=== PATIENT | male | born 1990 | race African-American/Black ===

== ENCOUNTER 2019-03-19 14:59 | Emergency (ER) | payer OTHER ==
[~2019-03-19] VITALS: Ht 188 cm; Wt 111.4 kg
[2019-03-19 15:45] VITALS: BP 147/86
[2019-03-19] MEDS ORDERED: AMOX TR/POT CLAV 875 MG/125 MG TABLET PO ONE (16:00)
[2019-03-19] MEDS ORDERED: HYDROCODONE/ACETAMINOPHEN 5-325 MG TABLET PO ONE (16:00)
== END 2019-03-19 16:57 | disposition home or self-care (01) ==
LOC: EMS 15:02
DX: S02.5XXA Fracture of tooth (traumatic), initial encounter for closed fracture (principal); F17.210 Nicotine dependence, cigarettes, uncomplicated; X58.XXXA Exposure to other specified factors, initial encounter; Y93.89 Activity, other specified; Y92.89 Other specified places as the place of occurrence of the external cause; Y99.8 Other external cause status
CPT/HCPCS: 99406

== ENCOUNTER 2024-04-21 01:33 | Emergency (ER) | payer OTHER ==
[~2024-04-21] VITALS: Ht 190.5 cm; Wt 100.0 kg
[2024-04-21 01:39] VITALS: BP 132/77; PULSE 88; RESP 18; O2SAT 100
[2024-04-21] MEDS: SODIUM CHLORIDE 0.9% 1,000 ML IV ONE (02:25)
== END 2024-04-21 03:12 | disposition left against medical advice (07) ==
LOC: EMS 01:33
DX: F12.90 Cannabis use, unspecified, uncomplicated (principal); T50.995A Adverse effect of other drugs, medicaments and biological substances, initial encounter; Y92.89 Other specified places as the place of occurrence of the external cause
CPT/HCPCS: 99283; 96360; J7030